=== PATIENT | female | born 1990 | race Caucasian/White ===

== ENCOUNTER 2016-06-28 19:13 | Emergency (ER) | payer MEDICAID ==
[2016-06-28 19:58] VITALS: BP 131/77
--- NOTE | 2016-06-28 20:01 | ER Document Report ---
ED Medical Screen (RME) - General Stated Complaint: TOOTH PAIN Time seen by provider: 19:59 Mode of Arrival: Ambulatory Information source: Patient Notes: I have greeted and performed a rapid initial assessment of this patient. A comprehensive ED assessment and evaluation of the patient, analysis of test results and completion of the medical decision making process will be conducted by additional ED providers. TRAVEL OUTSIDE OF THE [place] IN LAST 30 DAYS: No - HPI Patient complains to provider of: DENTAL PAIN/ABSCESS Onset: Other - TWO DAYS AGO Onset/Duration: Sudden Context: HAS BEEN SEEN BEFORE AT [facility] BUT NEVER WENT BACK TO HAVE TOOTH PULLED. STATES TOOTH IS INFECTED AGAIN AND PAINFUL. Quality of pain: Throbbing Severity: Moderate Pain Level: 4 Associated Symptoms: None Exacerbated by: Denies Relieved by: Denies Similar symptoms previously: Yes Recently seen / treated by doctor: No - Related Data Smoking: Non-smoker Frequency of alcohol use: None Drug Abuse: None Allergies/Adverse Reactions: Shellfish * [Shellfish] Allergy (Severe, Verified 09/19/12 20:56) Anaphylaxis cinnamon [Cinnamon] Allergy (Intermediate, Verified 09/19/12 20:56) tongue swelling, drooling, blisters on tongue Past Medical History - Social History Family history: Reviewed & Not Pertinent - Past Medical History Cardiac Medical History: Reports: Hx Hypertension - Only during Pulmonary Medical History: Denies: Hx Tuberculosis Past Surgical History: Denies: Hx Pacemaker - Immunizations Immunizations up to date: Yes Hx Diphtheria, Pertussis, Tetanus Vaccination: Yes Physical Exam - Vital signs Vitals: Temp Pulse Resp BP Pulse Ox 98.1 F 77 18 131/77 H 97 06/28/16 19:23 06/28/16 19:23 06/28/16 19:23 06/28/16 19:23 06/28/16 19:23 Course - Vital Signs Vital signs: Temp Pulse Resp BP Pulse Ox 98.1 F 77 18 131/77 H 97 06/28/16 19:23 06/28/16 19:23 06/28/16 19:23 06/28/16 19:23 06/28/16 19:23 Doctor's Discharge - Discharge Clinical Impression: Dental abscess Disposition: HOME, SELF-CARE Instructions: Penicillin V K (OM), Toothache (OM) Prescriptions: Naproxen Sodium [Naproxen Sodium ER] 500 mg PO Q12 PRN #20 tablet.sa PRN Reason: Penicillin V Potassium [Penicillin Vk 500 mg Tablet] 500 mg PO BID #20 tablet Referrals: KAITLIN CONNER MD [Primary Care Provider] - Follow up as needed
--- NOTE | 2016-06-28 20:51 | ER Document Report ---
ED General - General Chief Complaint: Toothache Stated Complaint: TOOTH PAIN Mode of Arrival: Ambulatory Information source: Patient Notes: This 26-year-old female presenting to the emergency room today stating she had dental decay or fracture to her right premolar for about a year she morning follow-up with a dentist and not been able to do so. TRAVEL OUTSIDE OF THE [place] IN LAST 30 DAYS: No - Related Data Allergies/Adverse Reactions: Shellfish * [Shellfish] Allergy (Severe, Verified 09/19/12 20:56) Anaphylaxis cinnamon [Cinnamon] Allergy (Intermediate, Verified 09/19/12 20:56) tongue swelling, drooling, blisters on tongue Past Medical History - General Information source: Patient - Social History Smoking Status: Never Smoker Frequency of alcohol use: None Drug Abuse: None Family History: None - Adopted Patient has suicidal ideation: No Patient has homicidal ideation: No - Past Medical History Cardiac Medical History: Reports: Hx Hypertension - Only during Pulmonary Medical History: Denies: Hx Tuberculosis Renal/ Medical History: Denies: Hx Peritoneal Dialysis Past Surgical History: Denies: Hx Pacemaker - Immunizations Immunizations up to date: Yes Hx Diphtheria, Pertussis, Tetanus Vaccination: Yes Review of Systems - Review of Systems Constitutional: No symptoms reported EENT: No symptoms reported Cardiovascular: No symptoms reported Respiratory: No symptoms reported Gastrointestinal: No symptoms reported Genitourinary: No symptoms reported Female Genitourinary: No symptoms reported Musculoskeletal: No symptoms reported Skin: No symptoms reported Hematologic/Lymphatic: No symptoms reported Neurological/Psychological: No symptoms reported Physical Exam - Vital signs Vitals: Temp Pulse Resp BP Pulse Ox 98.1 F 77 18 131/77 H 97 06/28/16 19:23 06/28/16 19:23 06/28/16 19:23 06/28/16 19:23 06/28/16 19:23 Interpretation: Normal - General General appearance: Appears well, Alert - HEENT Head: Normocephalic, Atraumatic Eyes: Normal Pupils: PERRL Mouth/Lips: Other - #31 tooth dental fracture and Brittney with a small abscess to the gumline. - Respiratory Respiratory status: No respiratory distress Chest status: Nontender Breath sounds: Normal Chest palpation: Normal - Cardiovascular Rhythm: Regular Heart sounds: Normal auscultation Murmur: No - Abdominal Inspection: Normal Distension: No distension Bowel sounds: Normal Tenderness: Nontender Organomegaly: No organomegaly - Back Back: Normal, Nontender - Extremities General upper extremity: Normal inspection, Nontender, Normal color, Normal ROM , Normal temperature General lower extremity: Normal inspection, Nontender, Normal color, Normal ROM , Normal temperature, Normal weight bearing. No: Trinity's sign - Neurological Neuro grossly intact: Yes Cognition: Normal Orientation: AAOx4 [place] Coma Scale Eye Opening: Spontaneous [place] Coma Scale Verbal: Oriented [place] Coma Scale Motor: Obeys Commands [place] Coma Scale Total: 15 Speech: Normal Motor strength normal: LUE, RUE, LLE, RLE Sensory: Normal - Psychological Associated symptoms: Normal affect, Normal mood - Skin Skin Temperature: Warm Skin Moisture: Dry Skin Color: Normal Course - Vital Signs Vital signs: Temp Pulse Resp BP Pulse Ox 98.1 F 77 18 131/77 H 97 06/28/16 19:23 06/28/16 19:23 06/28/16 19:23 06/28/16 19:23 06/28/16 19:23 Discharge - Discharge Bad tableDisposition: HOME, SELF-CARE Instructions: Penicillin V K ([facility]), Toothache ([facility]) Prescriptions: Naproxen Sodium [Naproxen Sodium ER] 500 mg PO Q12 PRN #20 tablet.sa PRN Reason: Penicillin V Potassium [Penicillin Vk 500 mg Tablet] 500 mg PO BID #20 tablet Referrals: KAITLIN CONNER MD [Primary Care Provider] - Follow up as needed
== END 2016-06-28 20:50 | disposition home or self-care (01) ==
LOC: ER 19:13
DX: K04.7 Periapical abscess without sinus (principal); K02.9 Dental caries, unspecified; K08.89 Other specified disorders of teeth and supporting structures; Z91.018 Allergy to other foods; Z87.892 Personal history of anaphylaxis; Z91.013 Allergy to seafood
CPT/HCPCS: 99282